=== PATIENT | female | born 1975 | race Caucasian/White ===

== ENCOUNTER 2016-10-14 20:23 | Emergency (ER) | payer OTHER ==
[~2016-10-14] VITALS: Ht 175.3 cm; Wt 127.0 kg
[~2016-10-14 20:23] MED LIST: HYDR12.53 PO; HYDR25SU18 RC; MULT-208 PO; NAPR500T PO; OMEG1CAP6 PO; PARO20TA3 PO
[2016-10-14] MEDS ORDERED: MORPHINE SULFATE 10 MG/ML VIAL. IM ONE (21:30)
[2016-10-14] MEDS ORDERED: DIPHTH,PERTUSS(ACELL),TET TOX 0.5 ML DISP.SYRIN. VAX IM ONE (21:30)
--- NOTE | 2016-10-14 22:16 | RAD ---
PROCEDURE Maxillofacial CT without contrast. HISTORY Fall, nasal laceration TECHNIQUE Noncontrast CT imaging was performed of the maxillofacial region, multiplanar reconstruction images submitted. Exposure: One or more of the following individualized dose reduction techniques were utilized for this exam: 1. Automated exposure control. 2. Adjustment of the mA and/or kV according to patient size. 3. Use of iterative reconstruction technique. COMPARISON None FINDINGS There is bandage material about the nose at site of soft tissue injury. No acute maxillofacial fracture is identified. Paranasal sinuses are overall aerated without air-fluid levels. Ostiomeatal units are patent. IMPRESSION No acute maxillofacial fracture is identified. Electronically signed by: Steffen Gaytan MD (October 14, 2016 22:15:18)
--- NOTE | 2016-10-14 22:34 | PHYS DOC ---
Past Medical History Past Medical History: No Pertinent History Past Surgical History: Appendectomy Additional Past Surgical Histo: VENOUS REFULX L LEG Alcohol Use: None Drug Use: None Adult General Chief Complaint Chief Complaint: LACERATION/AVULSION [facility] HPI Patient is a 41 year old female who presents with nose contusion. Patient states she tripped over her dog and fell hitting her nose on a sewing cabinet. Patient denies any loss of consciousness. She has a laceration over the nose. She has a notable blood clot in the right nasal cavity. Patient is requesting a plastic surgeon to saw up her laceration. Review of Systems Review of Systems Constitutional: Denies fever or chills [] Eyes: Denies change in visual acuity, redness, or eye pain [] HENT: Nose contusion Respiratory: Denies cough or shortness of breath [] Cardiovascular: No additional information not addressed in HPI [] GI: Denies abdominal pain, nausea, vomiting, bloody stools or diarrhea [] : Denies dysuria or hematuria [] Musculoskeletal: Denies back pain or joint pain [] Integument: Denies rash or skin lesions [] Neurologic: Denies headache, focal weakness or sensory changes [] Endocrine: Denies polyuria or polydipsia [] Current Medications Current Medications Current Medications Medications (Trade) Dose Ordered Sig/Kyara Start Time Stop Time Status Last Admin Dose Admin Diphtheria/ Tetanus/Acell Pertussis (Boostrix) 0.5 ml ONCE ONCE 10/14/16 21:30 10/14/16 21:31 DC 10/14/16 21:09 0.5 ML Morphine Sulfate 5 mg 1X ONCE 10/14/16 21:30 10/14/16 21:31 DC 10/14/16 21:10 5 MG Allergies Allergies Allergies Coded Allergies Type Severity Reaction Last Updated Verified Sulfa (Sulfonamide Antibiotics) Allergy Severe Hives 06/26/15 No Physical Exam Physical Exam Constitutional: Well developed, well nourished, no acute distress, non-toxic appearance. [] HENT: Normocephalic, atraumatic, bilateral external ears normal, oropharynx moist, no oral exudates, Exterior nose with an open laceration approximately 4 cm from the tip of the nose going down. There is mild blood clots on the right nasal cavity. Eyes: PERRLA, EOMI, conjunctiva normal, no discharge. [] Neck: Normal range of motion, no tenderness, supple, no stridor. [] Cardiovascular:Heart rate regular rhythm, no murmur [] Lungs & Thorax: Bilateral breath sounds clear to auscultation [] Abdomen: Bowel sounds normal, soft, no tenderness, no masses, no pulsatile masses. [] Skin: Warm, dry, no erythema, no rash. [] Back: No tenderness, no CVA tenderness. [] Extremities: No tenderness, no cyanosis, no clubbing, ROM intact, no edema. [] Neurologic: Alert and oriented X 3, normal motor function, normal sensory function, no focal deficits noted. [] Psychologic: Affect normal, judgement normal, mood normal. [] Current Patient Data Vital Signs Vital Signs Date Time Temp Pulse Resp B/P Pulse Ox O2 Delivery O2 Flow Rate FiO2 10/14/16 22:53 68 18 175/83 100 Room Air 10/14/16 20:35 97.5 97.5 EKG EKG [] Radiology/Procedures Radiology/Procedures []PROCEDURE: CT MAXILLOFACIAL WO CONTRAST PROCEDURE Maxillofacial CT without contrast. HISTORY Fall, nasal laceration TECHNIQUE Noncontrast CT imaging was performed of the maxillofacial region, multiplanar reconstruction images submitted. Exposure: One or more of the following individualized dose reduction techniques were utilized for this exam: 1. Automated exposure control. 2. Adjustment of the mA and/or kV according to patient size. 3. Use of iterative reconstruction technique. COMPARISON None FINDINGS There is bandage material about the nose at site of soft tissue injury. No acute maxillofacial fracture is identified. Paranasal sinuses are overall aerated without air-fluid levels. Ostiomeatal units are patent. IMPRESSION No acute maxillofacial fracture is identified. Electronically signed by: Steffen Gaytan MD (October 14, 2016 22:15:18) DICTATED and SIGNED BY: YAA GAYTAN MD DATE: 10/14/16 3334 CC: RADHA MCBRIDE APRN; NON,STAFF; CHEPE SANTOS APRN ~ Course & Med Decision Making Course & Med Decision Making Pertinent Labs and Imaging studies reviewed. (See chart for details) Patient is in the ED with nose contusion after falling and hitting her nose on a sewing cabinet. Tetanus was updated in the ED. She requested a plastic surgeon to sew her up. This hospital does not have a plastic surgeon. CT of faciomaxillary was negative for any acute findings. Consulted with [facility] spoke with Luisa the transfer nurse who stated the plastic surgeon Dr. Dove requested patient to decide either she can be sewn up in the ED and follow-up as an outpatient as she can go to the ED and be sewn up by a resident. Patient decided she would like to be discharged and go to [facility] and have her laceration repaired by the resident. Family transported her Dragon Disclaimer Dragon Disclaimer This electronic medical record was generated, in whole or in part, using a voice recognition dictation system. Departure Departure Impression: Primary Impression: Contusion of nose Additional Impression: Laceration of nose Disposition: 05 TRANSFER OTHER Condition: STABLE Referrals: CHEPE SANTOS APRN (PCP) Patient Instructions: Contusion, Facial Laceration Additional Instructions: Please head to ER and let them you are from [place] and need a plastic surgeon resident to sew your laceration. Let them know your CT of the faciomaxillary and you got a tetanus shot. Problem Qualifiers Primary Impression: Contusion of nose Encounter type: initial encounter Qualified Code: S00.33XA - Contusion of nose, initial encounter Additional Impression: Laceration of nose Encounter type: initial encounter Qualified Code: S01.21XA - Laceration without foreign body of nose, initial encounter RADHA MCBRIDE APRN October 14, 2016 22:34
[2016-10-14 22:53] VITALS: BP 175/83
== END 2016-10-14 22:59 | disposition short-term general hospital (02) ==
LOC: ER 20:23
DX: S01.21XA Laceration without foreign body of nose, initial encounter (principal); W01.0XXA Fall on same level from slipping, tripping and stumbling without subsequent striking against object, initial encounter; Z88.2 Allergy status to sulfonamides; Y93.89 Activity, other specified; Y92.89 Other specified places as the place of occurrence of the external cause; Y99.8 Other external cause status
CPT/HCPCS: 70486; 90471; 90715; 96372; 99284; J2270

== ENCOUNTER → 2018-02-22 | Outpatient (CLI) | payer OTHER ==
[~2018-02-22] MED LIST changes: +NAPR-683 PO; -NAPR500T PO
--- NOTE | 2018-02-22 16:02 | KCIC ---
Pelvic ultrasound Clinical Indication: Irregular menses. Pelvic pain.. Prior study not currently available for comparison. TRANSABDOMINAL SCAN Uterus measures 10.6 in longitudinal by 4.4 AP by 6.3 wide. Endometrial stripe measures 5 mm. Right ovary measures 3.5 cm diameter and contains a 3 cm hypoechoic lesion, most compatible with a cyst. Positive right ovary blood flow. Left ovary measures 3 cm diameter with intact blood supply. TRANSVAGINAL SCAN The endometrial stripe measures 9 mm and is homogeneous. Right ovarian cyst again identified without internal vascularity. Positive right ovary blood flow. Left ovary demonstrates intact blood supply. IMPRESSION: Right ovarian cyst. No significant abnormality of left ovary or uterus. Electronically signed by: Hakan Williamson MD (02/22/2018 3:59 PM) [id number]
== END | disposition home or self-care (01) ==
LOC: KCIC US 14:02
PROVIDERS: ATTEND Nurse Practitioner Family
DX: N83.201 Unspecified ovarian cyst, right side (principal); N92.6 Irregular menstruation, unspecified; I10 Essential (primary) hypertension; F41.9 Anxiety disorder, unspecified; F32.9 Major depressive disorder, single episode, unspecified; Z88.2 Allergy status to sulfonamides
CPT/HCPCS: 76830; 76856

== ENCOUNTER 2020-12-23 15:44 | Emergency (ER) | payer OTHER ==
[~2020-12-23] VITALS: Ht 175.3 cm; Wt 138.0 kg
[~2020-12-23 15:44] MED LIST changes: -HYDR12.53 PO; +HYDR12.575 PO
[2020-12-23 16:40] VITALS: BP 214/89
--- NOTE | 2020-12-23 17:51 | RAD ---
Exam: Left lower extremity venous duplex study INDICATION: Leg swelling TECHNIQUE: Using a combination of real-time ultrasound imaging and color-flow and pulse Doppler imagi ng techniques along with graded compression and augmentation, duplex evaluation of the deep venous sy stems of leftlower extremity was performed. Multiple images were obtained. Findings: There is no sonographic evidence for deep venous thrombosis involving the visualized deep venous stru ctures of the left lower extremity. IMPRESSION: No acute DVT in the left lower extremities. Electronically signed by: Mirlande Adams MD (12/23/2020 5:49 PM) MARI
--- NOTE | 2020-12-23 18:04 | ED.ADGEN ---
Past Medical History Past Medical History: No Pertinent History Past Surgical History: Appendectomy Additional Past Surgical Histo: VENOUS REFULX L LEG Smoking Status: Never Smoker Alcohol Use: None Drug Use: None General Adult EDM: Chief Complaint: LOWER EXTREMITY SWELLING HPI: HPI: Patient is a 45 year old female who presents to the emergency department with concerns of a blood clot in her left calf. Patient reports a history of previous vein stripping. She denies any previous history of blood clots. She denies any recent travel or flights. Patient states she has noticed a inflamed erythemic warm area to the back of her calf, she denies any itching or insect bites. Patient denies any fever, cough, shortness of breath, nausea, vomiting, diarrhea, chest pain, palpitations, or abdominal pain. Patient denies any concerns of COVID-19, she has not been immunized against Covid. She currently rates pain a 4 out of 10 on the pain scale, she denies any alleviating factors. Review of Systems: Review of Systems: Complete ROS is negative unless otherwise noted in HPI. Allergies: Allergies: Allergies Coded Allergies Type Severity Reaction Last Updated Verified Sulfa (Sulfonamide Antibiotics) Allergy Severe Hives 06/26/15 No Physical Exam: PE: See Above Constitutional: Well developed, well nourished, no acute distress, non-toxic appearance, obese. [] HENT: Normocephalic, atraumatic, bilateral external ears normal, nose normal. [] Eyes: PERRLA, EOMI, conjunctiva normal, no discharge. [] Neck: Normal range of motion, no stridor. [] Cardiovascular:Heart rate regular rhythm Lungs & Thorax: Respirations even and unlabored, no retractions, no respiratory distress Skin: Warm, dry; erythema and warmth posterior left calf consistent with contact dermatitis/allergic reaction to insect sting.] Extremities: RLE: Right calf tenderness to palpation, sensation intact, no bony tenderness, no obvious deformity, no cyanosis, ROM intact, 1+ edema. [] Neurologic: Alert and oriented X 3, normal motor, normal sensory, no focal deficits noted. [] Psychologic: Affect normal, judgement normal, mood normal. [] Current Patient Data: Vital Signs: Vital Signs Date Time Temp Pulse Resp B/P (MAP) Pulse Ox O2 Delivery O2 Flow Rate FiO2 12/23/20 16:40 98.4 77 18 214/89 (113) 100 Room Air 98.4 EKG: EKG: [] Heart Score: C/O Chest Pain: No Radiology/Procedures: Radiology/Procedures: PROCEDURE: VENOUS LOWER EXTREMITY LEFT Exam: Left lower extremity venous duplex study INDICATION: Leg swelling TECHNIQUE: Using a combination of real-time ultrasound imaging and color-flow and pulse Doppler imaging techniques along with graded compression and augmentation, duplex evaluation of the deep venous systems of leftlower extremity was performed. Multiple images were obtained. Findings: There is no sonographic evidence for deep venous thrombosis involving the visualized deep venous structures of the left lower extremity. IMPRESSION: No acute DVT in the left lower extremities. Electronically signed by: Mirlande Adams MD (12/23/2020 5:49 PM) [facility] [] Course & Med Decision Making: Course & Med Decision Making Pertinent Labs and Imaging studies reviewed. (See chart for details) [] Dragon Disclaimer: Dragon Disclaimer: This electronic medical record was generated, in whole or in part, using a voice recognition dictation system. Departure Departure Impression: Primary Impression: Erythema of lower extremity Additional Impression: Contact dermatitis, allergic Disposition: 01 HOME / SELF CARE / HOMELESS Condition: STABLE Referrals: CHEPE SANTOS APRN (PCP) Patient Instructions: Contact Dermatitis Additional Instructions: Recommend that you apply topical hydrocortisone cream as needed for itching and redness. Your ultrasound was negative for blood clot. Follow-up with your primary care doctor in 1 to 2 days, return to the ER if symptoms worsen, you may take Tylenol or ibuprofen as needed for pain. Problem Qualifiers Additional Impression: Contact dermatitis, allergic Contact dermatitis trigger: unspecified trigger Qualified Codes: L23.9 - Allergic contact dermatitis, unspecified cause SHIRIN HUGHES APRN Dec 23, 2020 18:04
== END 2020-12-23 18:05 | disposition home or self-care (01) ==
LOC: ER 15:44
DX: L23.9 Allergic contact dermatitis, unspecified cause (principal); Z88.2 Allergy status to sulfonamides
CPT/HCPCS: 93971; 99283; 99284

== ENCOUNTER → 2021-01-18 | Outpatient (CLI) | payer OTHER ==
[2020-12-23 16:40] VITALS: BP 214/89
--- NOTE | 2021-01-18 10:31 | CARD ---
MR#: [id number] Date of Study: 01/18/2021 Ordering Physician: KRYSTYNA DUDLEY, Referring Physician: Rony GARCIA: Junior [facility] APPROVED REPORT EXAM: Two-dimensional and M-mode echocardiogram with Doppler and color Doppler. Other Information Quality : AverageHR: 70bpm Rhythm : NSR INDICATION COPD Venous Insufficency RISK FACTORS Obesity 2D DIMENSIONS Left Atrium(2D)4.5 (1.6-4.0cm)IVSd1.0 (0.7-1.1cm) Aortic Root(2D)3.3 (2.0-3.7cm)LVDd5.2 (3.9-5.9cm) PWd1.0 (0.7-1.1cm)LVDs3.5 (2.5-4.0cm) FS (%) 32.2 %SV78.8 ml LVEF(%)60.0 (>50%) Aortic Valve AoV Peak Nimesh.155.1cm/sAoV VTI30.9cm AO Peak GR.9.6mmHgLVOT Peak Nimesh.69.9cm/s AO Mean GR.5mmHg Mitral Valve MV E Gexdoudt544.5cm/sMV E Peak Gr.6mmHg MV DECEL [id number] A Drrpciwb79.3cm/s MV E Mean Gr.2mmHgE/A Ratio1.5 Pulmonary Valve PV Peak Elyxmdhg129.1cm/s Tricuspid Valve TR P. Vwuutqks009qr/sTR Peak Gr.30mmHg Pulmonary Vein S1 Ulqddbqf22.5cm/sD2 Bjwshsxl04.9cm/s LEFT VENTRICLE The left ventricle is normal size. There is normal left ventricular wall thickness. The left ventricu lar systolic function is normal. The ejection fraction is estimated at 60-65%. There is normal LV seg mental wall motion. The left ventricular diastolic function and filling is normal for age. No left ve ntricle thrombus noted on this study. There is no ventricular septal defect visualized. There is no l eft ventricular aneurysm. There is no mass noted in the left ventricle. RIGHT VENTRICLE The right ventricle is normal size. There is normal right ventricular wall thickness. The right ventr icular systolic function is normal. ATRIA The left atrium is mildly dilated. The right atrium size is normal. The interatrial septum is intact with no evidence for an atrial septal defect or patent foramen ovale as noted on 2-D or Doppler imagi ng. AORTIC VALVE The aortic valve is grossly normal. Not well seen. Doppler and Color Flow revealed no significant aor tic regurgitation. There is no significant aortic valvular stenosis. There is no aortic valvular vege tation. MITRAL VALVE The mitral valve is normal in structure and function. There is no evidence of mitral valve prolapse. There is no mitral valve stenosis. Doppler and Color-flow revealed trace to mild mitral regurgitation . TRICUSPID VALVE The tricuspid valve is normal in structure and function. Doppler and Color Flow revealed trace tricus pid regurgitation. The pulmonary artery systolic pressure is estimated at 35 mmHg. There is no tricus pid valve prolapse or vegetation. There is no tricuspid valve stenosis. PULMONIC VALVE The pulmonic valve is not well seen. Doppler and Color Flow revealed no pulmonic valvular regurgitati on. There is no pulmonic valvular stenosis. GREAT VESSELS The aortic root is normal in size. The ascending aorta is normal in size. The pulmonary artery is nor mal. The IVC is normal in size and collapses >50% with inspiration. PERICARDIAL EFFUSION There is no pleural effusion. There is no evidence of significant pericardial effusion. Critical Notification Critical Value: No <Conclusion> The left ventricular systolic function is normal. The ejection fraction is estimated at 60-65%. There is normal LV segmental wall motion. Trace to mild mitral regurgitation. Trace tricuspid regurgitation. The pulmonary artery systolic pressure is estimated at 35 mmHg. There is no evidence of significant pericardial effusion. Signed by : Krystyna Dudley, Electronically Approved : 01/18/2021 10:31:15
--- NOTE | 2021-01-24 09:58 | RAD ---
MR#: [id number] Date of Study: 01/18/2021 Ordering Physician: KRYSTYNA DARLING, Referring Physician: KRYSTYNA DARLING, Tech: Nae Sneed RDMS, KASSIDY, RTR APPROVED REPORT Patient Location : OUT-PATIENT Indications Lower Extremity Pain : Bilateral Lower Extremity Edema : Bilateral Venous Insufficiency Deep System Deep Venous Reflux present : Bilateral Perforators Thigh Perforators Calf Perforators Right: cm up from medial heel cm back from the anterior border of tibia diameter 4.1mm. Left: cm up from medial heel cm back from the anterior border of tibia diameter 4.9mm. Findings Grayscale images the bilateral saphenofemoral junctions are grossly unremarkable. The bilateral greater saphenous veins have been previously ablated. Bilateral lesser saphenous veins did not reveal any obvious evidence of reflux. The right lesser sap henous vein measures 3.6 mm and the left lesser saphenous vein measures 2.3 mm. On the right side there is a calf general i farmworker at approximately 25 cm up with a diameter 4.1 mm and a r eflux time of 2.9 seconds. On the left side there is a calf general i farmworker approximately 17 cm up from t he ankle and with a diameter of 4.9 mm with a reflux time of 1.6 seconds. Critical Notification Critical Value: No <Conclusion> 1. Bilateral previous greater saphenous vein ablations. 2. No significant lesser saphenous vein reflux disease 3. Single perforators noted on the right and left side as described above with notable reflux. Signed by : Pranav Wang, Electronically Approved : 01/24/2021 09:58:12
== END ==
LOC: ECHO 07:43
PROVIDERS: ATTEND Internal Medicine Cardiovascular Disease
DX: I34.0 Nonrheumatic mitral (valve) insufficiency (principal); I87.2 Venous insufficiency (chronic) (peripheral); I10 Essential (primary) hypertension
CPT/HCPCS: 93306; 93970

== ENCOUNTER → 2021-10-03 | Outpatient (CLI) | payer OTHER ==
--- NOTE | 2021-10-03 16:07 | KCIC ---
INDICATION: 46 years of age asymptomatic female patient presents for screening mammography. Family hi story of breast cancer in grandmother, age unspecified. TECHNIQUE: Full field craniocaudal and mediolateral oblique images of both breasts were obtained usi ng digital technique with tomosynthesis and also analyzed with computer-aided detection software. COMPARISON: Prior mammographic imaging dating back to 07/17/2017. BREAST COMPOSITION: Category C: The breast tissue is heterogeneously dense, which could obscure detec tion of small masses. FINDINGS: Left breast: Area of architectural distortion at the 2:00 position, 6 cm deep to the nipple. No suspi cious calcifications. Right breast: No suspicious masses, microcalcifications or architectural distortion is present. The visualized axillae are unremarkable. IMPRESSION: Area of architectural distortion in the left upper outer quadrant, middle depth. Addition al evaluation with diagnostic left breast mammogram with spot compression. Additional evaluation with targeted left breast ultrasound may also be indicated. RECOMMENDATION: The patient will be contacted to return for additional imaging and a supplemental rep ort will follow. BIRADS 0: INCOMPLETE - NEED ADDITIONAL IMAGING EVALUATION AND/OR PRIOR MAMMOGRAMS FOR COMPARISON. This study was interpreted with the benefit of Computerized Aided Detection (CAD). ?Your patient's mammogram demonstrates that she has dense breast tissue (breast density category C or D), which could hide abnormalities, and if she has other risk factors for breast cancer that have be en identified, she might benefit from supplemental screening tests that may be suggested by you as he r ordering physician. Dense breast tissue, in and of itself, is a relatively common condition. Theref ore, this information is not provided to cause undue concern, but rather to raise your awareness and to promote discussion with your patient regarding the presence of other risk factors, in addition to dense breast tissue. Your patient's mammography results will be sent to her. Patient information is entered into the reminder system with a target due date for the next screening mammogram. Mammography is the most sensitive method for finding small breast cancers, but it does not detect the m all and is not a substitute for careful clinical examination. A negative mammogram does not negate a clinically suspicious finding and should not result in delay in biopsying a clinically suspicious a bnormality. "Our facility is accredited by the [employer] Mammography Program." Electronically signed by: Dario Lee DO (10/03/2021 4:04 PM) [id number]
--- NOTE | 2021-10-03 16:46 | KCIC ---
EXAM: ULTRASOUND PELVIS INDICATION: Reason: Post Menopausal Bleeding. COMPARISON: None available. TECHNIQUE: Transabdominal and transvaginal sonography was performed. FINDINGS: The uterus measures 9.2 x 5.2 x 4 cm. The endometrium measures 1.2 mm. There is no focal myometrial a bnormality The ovaries were unable to be identified. There is no free fluid. IMPRESSION: Normal uterus. Limited study as the ovaries were unable to be identified. Electronically signed by: Noel Haji MD (10/03/2021 4:43 PM) [id number]
== END ==
LOC: KCIC MAMMO 13:40
PROVIDERS: ATTEND Obstetrics & Gynecology
DX: Z12.31 Encounter for screening mammogram for malignant neoplasm of breast (principal); N95.0 Postmenopausal bleeding
CPT/HCPCS: 76830; 76856; 77063; 77067

== ENCOUNTER → 2021-10-15 | Outpatient (CLI) | payer OTHER ==
--- NOTE | 2021-10-15 16:15 | RAD ---
DATE: 10/15/2021 EXAM: US BREAST LT, MG DIGITAL UNILAT DIAGNOSTIC MAMMO WITH SHELLY HISTORY: Recalled from screening mammogram for architectural distortion in the upper outer left breas t middle depth. COMPARISON: Screening mammogram 10/03/2021 Breast Density: SCATTERED The breast parenchyma shows scattered fibroglandular densities. Breast pare nchyma level B. FINDINGS: The architectural distortion in the outer left breast middle depth changes configuration on CC spot compression and is not definitely seen on ML or spot compression MLO views. Ultrasound of the left breast was performed at 1-2 o'clock and 4-5 o'clock. At 2:00, 5 cm from the ni pple, there is a ovoid hypoechoic mass measuring 3 x 3 x 1 mm. This has smooth margins and no interna l blood flow, and is likely a complicated cyst. At 5-6 o'clock middle depth there is some dense tissu e but no cyst or mass, or correlation for architectural distortion. IMPRESSION: 3 mm probably benign mass in the left breast at 2:00 5 cm from nipple. The architectural distortion seen on 10/03/2021 does not definitively persist on spot compression views and has no sonog raphic correlation. Recommend short interval follow-up left breast mammogram and ultrasound in 6 taty hs to ensure stability of the architectural distortion and the probably benign mass. BI-RADS CATEGORY: 3 PROBABLY BENIGN FINDING(S)-SHORT INTERVAL FOLLOW-UP SUGGESTED RECOMMENDED FOLLOW-UP: 6M 6 MONTH FOLLOW-UP PQRS compliance statement: Patient information was entered into a reminder system with a target due d ate for the next mammogram. Mammography is a sensitive method for finding small breast cancers, but it does not detect them all a nd is not a substitute for careful clinical examination. A negative mammogram does not negate a clin ically suspicious finding and should not result in delay in biopsying a clinically suspicious abnorma lity. "Our facility is accredited by the [employer] Mammography Program." Electronically signed by: Carito Martinez MD (10/15/2021 4:12 PM) [email or web address]
== END ==
LOC: MAMMO 10:44
PROVIDERS: ATTEND Obstetrics & Gynecology
DX: N63.21 Unspecified lump in the left breast, upper outer quadrant (principal)
CPT/HCPCS: 76641; 77065; G0279; 77061

== ENCOUNTER → 2021-11-01 | Outpatient (CLI) | payer OTHER ==
--- NOTE | 2021-11-05 17:10 | PATHOLOGY ---
[facility] Accession Number: [id number] . 01 Material submitted: . PART A: endometrium - ENDOMETRIAL BIOPSY PART B: endocervix - ECC PART C: cervix - CERVICAL BIOPSY . 01 Clinician provided ICD-10: N84.1 N95.0 . 01 Clinical history: . POLYP OF CERVIX UTERI, PMB . 02 Diagnosis: A. Endometrial biopsy: - Strips of endometrial surface epithelium and fragmented endometrial glands, and several segments of superficial endometrial tissue. See comment. . B. Endocervical curettings: - Mucin containing minute strips of benign endocervical epithelium. . C. Cervical biopsy: - Endocervical polyp showing focal chronic inflammation. (JPM:genesis; 11/05/2021) [facility] 11/05/2021 1353 Local . 02 Comment: Sections of the endometrial biopsy reveal strips of endometrial surface epithelium and fragmented endometrial glands, in addition to several small segments of superficial endometrial tissue in which the endometrial stroma largely appears devoid of glands. The findings are consistent with an atrophic endometrium. There is no evidence of hyperplasia or malignancy. (JPM:genesis; 11/05/2021) . 02 Electronically signed: . Grant Hughes MD, Pathologist NPI- [id number] . 01 Gross description: . A. The specimen is received in formalin, labeled "S Boaz EMB". Received are several segments of red-brown tissue admixed with mucoid material measuring 0.8 x 0.4 x 0.1 cm in aggregate dimensions. The specimen is filtered and entirely submitted in cassette A1. . B. The specimen is received in formalin, labeled "S Boaz, ECC". Received is blood-tinged mucoid material admixed with minute fragments of pale byers tissue measuring 1.5 x 0.8 x 0.1 cm in aggregate dimensions. The specimen is filtered and entirely submitted in cassette B1. . C. The specimen is received in formalin, labeled "S Boaz, cervical polyp". The source is additionally labeled on the requisition as "cervical biopsy". Received is a segment of pale byers to red-brown tissue measuring 1.6 x 1.2 x 0.3 cm with an attached stalk measuring 0.5 cm in length by 0.5 cm in diameter. The surgical margin is inked. The specimen is quadrisected perpendicular to the margin and entirely submitted in cassette C1. (CAA; 11/04/2021) QAC/QAC 11/04/2021 1518 Local . 02 Pathologist provided ICD-10: N84.1, N72 . 02 CPT . 225901, [id number], [id number] Specimen Comment: A courtesy copy of this report has been sent to [phone], [phone] Specimen Comment: [id number] Specimen Comment: Report sent to / DR SANTOS Specimen Comment: A duplicate report has been generated due to demographic updates. Performed at: 01 [facility] [address], [place] [id number] MD Pritesh Siegel MD Phone: [phone] Performed at: [facility] [address], [place] [id number] MD Grant Hughes MD Phone: [phone]
== END ==
LOC: SPEC 15:38
PROVIDERS: ATTEND Obstetrics & Gynecology
DX: N84.1 Polyp of cervix uteri (principal); N95.0 Postmenopausal bleeding
CPT/HCPCS: 88305